=== PATIENT | male | born 1960 | race Two or more races ===

== ENCOUNTER 2024-06-09 05:15 | Day surgery (SDC) | payer OTHER ==
[~2024-06-09 05:15] MED LIST: ALTACE5 MG PO; CHILDREN'S ASPI81 MG PO
[2024-06-09] MEDS ORDERED: CEFAZOLIN SODIUM 1,000 MG VIAL ONE (07:43)
[2024-06-09] MEDS ORDERED: CEFAZOLIN SODIUM 1,000 MG VIAL IV ONE (08:45)
== END 2024-06-09 11:20 | disposition home or self-care (01) ==
LOC: CIR.AMB 05:15
PROVIDERS: ATTEND Surgery Surgery of the Hand
DX: M72.0 Palmar fascial fibromatosis [Dupuytren] (principal)

== ENCOUNTER 2025-06-22 08:00 | Day surgery (SDC) | payer OTHER ==
[2025-06-17 12:58] VITALS: BP 131/85
[~2025-06-22] VITALS: Ht 182.9 cm; Wt 97.5 kg
[2025-06-22] MEDS ORDERED: CEFAZOLIN SODIUM 1,000 MG VIAL ONE (10:17)
== END 2025-06-22 13:50 | disposition home or self-care (01) ==
LOC: CIR.AMB 08:00
PROVIDERS: ATTEND Surgery Surgery of the Hand
DX: M67.843 Other specified disorders of tendon, right hand (principal)